=== PATIENT | female | born 1980 | race African-American/Black ===

== ENCOUNTER → 2019-12-09 12:49 | Outpatient (CLI) | payer OTHER, SELFPAY ==
--- NOTE | 2019-12-09 13:03 | US_ITS ---
PROCEDURE: US FNA THYROID CLINICAL INDICATION: RT THYROID NODULES COMPARISON: US US THYROID from 11/15/2019 TECHNIQUE: Pre biopsy exam confirms irregular complex nodule in the right lobe of the thyroid gland which was targeted for biopsy. Following obtaining informed consent, using aseptic technique and local anesthesia with buffered lidocaine, fine-needle aspiration was performed of the nodule of interest using sonographic guidance. 3 passes were made into the nodule with a 21 gauge needle. Specimen was given to cytology. The patient tolerated the procedure well without evidence of immediate complications and left ultrasound suite in stable condition FINDINGS: CYTOLOGY: Negative for malignancy. Consistent with a benign colloid nodule IMPRESSION: Status post ultrasound-guided fine needle aspiration right thyroid nodule negative for malignancy. Dictated by: Pola Plunkett MD 12/20/2019 11:12 Pola Plunkett MD in [place] 12/20/2019 11:12
[2019-12-11 13:17] LABS: Thyroid Peroxidase Antibodies <9 IU/mL (0-34)
[2019-12-16 10:12] LABS: Thyroglobulin Level <1.0 IU/mL (0.0-0.9)
== END ==
PROVIDERS: PCP Social Worker; Visit Provider Otolaryngology
DX: D34 Benign neoplasm of thyroid gland (principal); E06.1 Subacute thyroiditis
CPT/HCPCS: 10005; 36415; 76942; 86376; 86800